=== PATIENT | male | born 1955 | race Caucasian/White ===

== ENCOUNTER 2020-11-23 22:47 | Emergency (ER) | payer MEDICARE, OTHER ==
[~2020-11-23] VITALS: Ht 172.7 cm; Wt 70.0 kg
[2020-11-23] MEDS ORDERED: CYCL-707 PO (23:00)
[2020-11-23] MEDS ORDERED: NAPR-885 PO (23:00)
[2020-11-24] MEDS ORDERED: METH-1165 PO (04:48)
[2020-11-24] MEDS ORDERED: methocarbamoL 750 MG TAB PO ONE (04:50)
[2020-11-24 04:57] VITALS: BP 120/73
== END 2020-11-24 05:17 | disposition home or self-care (01) ==
LOC: M ED 22:47
DX: M54.5 Low back pain (principal); Z88.0 Allergy status to penicillin